=== PATIENT | male | born 1970 | race Asian ===

== ENCOUNTER 2019-04-23 14:16 | Emergency (ER) | payer OTHER ==
[~2019-04-23] VITALS: Ht 175.3 cm; Wt 84.7 kg
[~2019-04-23 14:16] MED LIST: IBUP800T48 PO
[2019-04-23 14:20] VITALS: Ht 175.3 cm; Wt 84.7 kg
[2019-04-23] MEDS ORDERED: ASPIRIN 325 MG TAB PO STA (14:30)
[2019-04-23] MEDS ORDERED: SOD CHLORIDE 0.9% 1,000 ML IV STA (14:30)
[2019-04-23] MEDS ORDERED: LORAZEPAM 2 MG INJ IV ONE (14:30)
[2019-04-23] MEDS ORDERED: KETOROLAC 30 MG INJ IV STA (16:02)
--- NOTE | 2019-04-23 16:14 | ERD ---
ER Documentation Chief Complaint Chief Complaint SHARP CHEST PAIN ON LEFT, NON-RADIATING HPI This is a very pleasant 49-year-old male that presents to the emergency department no past medical history after he developed a sharp shooting chest pain that occurred just prior to arrival. The patient indicated he was driving when the pain occurred in the mid sternum and slightly rotated to the left side of his chest. He denied any chest pressure. He states the pain again was a sharp shooting pain. Did not radiate to the neck arm back or jaw. The patient indicates he has been undergoing a significant amount of exercise over the past several months and has lost a significant amount of weight. He has no shortness of breath at rest or exertion. He does not smoke tobacco is he quit over 5 years ago. He has no family history of coronary artery disease in his first- degree relatives. 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 He denies any shortness of breath at rest or exertion. He has no swelling of his lower extremities. He stated he started to become very anxious and immediately drove himself to the emergency department for further evaluation. No associated symptoms of nausea vomiting or diaphoresis. No dizziness. No headache. ROS All systems reviewed and are negative except as per history of present illness. Medications Home Meds Active Scripts Ibuprofen* (Motrin*) 800 Mg Tab, 800 MG PO Q6H PRN for PAIN AND OR ELEVATED TEMP, #30 TAB Prov:JOSE MANUEL ZAMARRIPA MD 04/23/19 Allergies Allergies: Coded Allergies: No Known Allergy (Unverified , 04/23/19) PMhx/Soc Medical and Surgical Hx: pt denies Medical Hx Hx Alcohol Use: No Hx Substance Use: No Hx Tobacco Use: No Smoking Status: Former smoker Physical Exam Vitals Vital Signs Date Temp Pulse Resp B/P (MAP) Pulse Ox O2 O2 Flow FiO2 Time Delivery Rate 04/23/19 Nasal 2 14:58 Cannula 04/23/19 97.6 83 17 178/95 98 14:20 (122) Physical Exam Constitutional:Well-developed. Well-nourished. HEENT:Normocephalic. Atraumatic.Pupils were equal round reactive to light. Moist mucous membranes.No tonsillar exudates. Neck: No nuchal rigidity. No lymphadenopathy. No posterior cervical spine tenderness or step-offs. Respiratory: Not using accessory muscles of respiration.Lungs were clear to auscultation bilaterally. No rhonchi. No rales. No wheezing. Cardiovascular: Regular rate regular rhythm.No murmurs. No rubs were appreciated.S1, S2 normal. Distal pulses are palpable 2+ bilaterally. Reproducible chest wall tenderness with no crepitus no ecchymosis no flail chest GI: Abdomen was soft. Nontender. Non Distended. No pulsatile abdominal masses or bruits. No rebound. No guarding. Bowel sounds were present and normal. Muscle skeletal: Full range of motion of both the upper and lower extremities bilaterally.Normal muscle tone.No assymetrical calf tenderness or swelling. Skin: No petechia, no purpura. No lesions on the palms or the soles of the feet. No maculopapular rash. NEURO: Patient was alert, awake, orientated x3.No facial droop. Gait observed and normal with no ataxia.Speech had regular rate and rhythm. No focal neurological deficits. Result Diagram: 04/23/19 1435 04/23/19 1435 Results 24 hrs Laboratory Tests Test 04/23/19 14:35 White Blood Count 10.2 10^3/ul Red Blood Count 4.76 10^6/ul Hemoglobin 14.6 g/dl Hematocrit 42.2 % Mean Corpuscular Volume 88.7 fl Mean Corpuscular Hemoglobin 30.7 pg Mean Corpuscular Hemoglobin Concent 34.6 g/dl Red Cell Distribution Width 11.5 % Platelet Count 350 10^3/UL Mean Platelet Volume 8.7 fl Immature Granulocytes % 0.200 % Neutrophils % 60.4 % Lymphocytes % 29.6 % Monocytes % 6.7 % Eosinophils % 2.2 % Basophils % 0.9 % Nucleated Red Blood Cells % 0.0 /100WBC Immature Granulocytes # 0.020 10^3/ul Neutrophils # 6.2 10^3/ul Lymphocytes # 3.0 10^3/ul Monocytes # 0.7 10^3/ul Eosinophils # 0.2 10^3/ul Basophils # 0.1 10^3/ul Nucleated Red Blood Cells # 0.0 10^3/ul Prothrombin Time 13.1 Sec Prothrombin Time Ratio 1.0 INR International Normalized Ratio 0.98 Activated Partial Thromboplast Time 28.1 Sec D-Dimer 393.46 ng/ml D-Dimer Comment Sodium Level 138 mmol/L Potassium Level 4.0 mmol/L Chloride Level 105 mmol/L Carbon Dioxide Level 22 mmol/L Anion Gap 11 Blood Urea Nitrogen 21 mg/dl Creatinine 0.95 mg/dl Est Glomerular Filtrat Rate mL/min > 60 mL/min Glucose Level 95 mg/dl Calcium Level 9.9 mg/dl Total Bilirubin 0.3 mg/dl Direct Bilirubin 0.00 mg/dl Indirect Bilirubin 0.3 mg/dl Aspartate Amino Transf (AST/SGOT) 33 IU/L Alanine Aminotransferase (ALT/SGPT) 36 IU/L Alkaline Phosphatase 74 IU/L Creatine Kinase 193 IU/L Creatine Kinase Index 0.7 Creatinine Kinase MB (Mass) 1.35 ng/ml Troponin I < 0.012 ng/ml B-Type Natriuretic Peptide 12 PG/ML Total Protein 7.9 g/dl Albumin 4.6 g/dl Globulin 3.30 g/dl Albumin/Globulin Ratio 1.39 Lipase 62 U/L Current Medications Medications Dose Sig/Violet Start Time Status Last (Trade) Ordered Route PRN Stop Time Admin Dose Reason Admin Sodium 1,000 ml @ Q1H STAT 04/23/19 DC 04/23/19 Chloride 1,000 mls/hr IV 14:30 14:45 04/23/19 15:29 Aspirin 325 mg ONCE STAT 04/23/19 DC 04/23/19 (Aspirin) PO 14:30 14:45 04/23/19 14:34 Lorazepam 0.5 mg ONCE ONCE 04/23/19 DC 04/23/19 (Ativan) IV 14:30 14:45 04/23/19 14:34 Ketorolac 30 mg ONCE STAT 04/23/19 DC Tromethamine IV 16:02 (Toradol) 04/23/19 16:04 Procedures/MDM The patient presented to the emergency department complaining of chest pain. My clinical evaluation and workup was to distinguish minor causes of chest pain from acute life threatening cardiopulmonary causes such as myocardial infarction, pulmonary embolism, aortic dissection, esophageal rupture, cardiac tamponade, The patient was placed on a director of cardiac rehabilitation, continuous pulse oximetry and IV access established by nursing staff. The patient was given aspirin with no improvement of his pain. Therefore he was given IV Toradol and the pain resolved. 12 Lead EKG tracing ordered and reviewed by myself showed: Normal sinus rhythm of 74 bpm and no arrhythmia. OH interval normal. QRS duration normal. No ST segment elevation No ST segment depression. No changes consistent with acute ischemia. 1 view chest radiograph on reviewed by myself showed no cardiomegaly no infiltrates no pneumothorax. My clinical suspicion was low for pulmonary embolism . therefore obtained a d- dimer and this was not elevated. The patient no severe left light abnormalities. Cardiac enzyme was within normal limits. The patients chest pain was reproduced by palpation and horizontal flexion of the arms. It was my clinical impression that the pain was a result of inflammation of the skin and subcutaneous structures of the chest wall versus myocardial ischemia. I felt the patient had low-risk chest pain and could therefore be safely discharged with close follow-up. Departure Diagnosis: Primary Impression: Costal chondritis Condition: Fair Patient Instructions: Costochondritis JOSE MANUEL ZAMARRIPA MD Apr 23, 2019 16:14
[2019-04-23 16:44] VITALS: BP 137/97; PULSE 69; RESP 18
== END 2019-04-23 16:45 | disposition home or self-care (01) ==
LOC: E/R 14:16
DX: M94.0 Chondrocostal junction syndrome [Tietze] (principal); Z87.891 Personal history of nicotine dependence
CPT/HCPCS: 71045; 80053; 82550; 82553; 83690; 83880; 84484; 85025; 85378; 85610; 85730; J1885; J2060; J7030; 36415; 93005; 96374; 96375